=== PATIENT | male | born 1950 | race Caucasian/White ===

== ENCOUNTER 2024-08-09 20:50 | Emergency (ER) | payer MEDICARE, OTHER ==
[2024-08-09] MEDS ORDERED: Sodium Chloride 0.9% 10 ML Syringe FLUSH PRN (21:04)
[2024-08-09] MEDS: Aspirin 81 MG Tab.Chew PO ONE (21:14)
[2024-08-09] MEDS: Nitroglycerin 0.4 MG Tab.SL SL ONE ×2 (21:15→22:07)
[2024-08-09 21:18] LABS: BASOPHILS PERCENT AUTO 0.8 % (0.2-1.2); EOSINOPHILS ABSOLUTE AUTO 0.3 x10^3/uL (0.0-0.5); EOSINOPHILS PERCENT AUTO 6.2 % (0.0-4.0); HEMATOCRIT 39.5 % (40.0-52.0); HEMOGLOBIN 13.6 g/dL (14.0-18.0); LYMPHOCYTES ABSOLUTE AUTO 1.3 x10^3/uL (1.0-4.8); LYMPHOCYTES PERCENT AUTO 27.3 % (25.0-50.0); MEAN CORPUSCULAR HEMOGLOBIN 31.3 pg (26.0-32.0); MEAN CORPUSCULAR HGB CONC 34.4 g/dL (32.0-36.0); MONOCYTES ABSOLUTE AUTO 0.5 x10^3/uL (0.0-0.8); MONOCYTES PERCENT AUTO 10.5 % (2.0-11.0); NEUTROPHILS ABSOLUTE AUTO 2.7 x10^3/uL (1.8-7.7); NEUTROPHILS PERCENT AUTO 55.2 % (50.0-80.0); PLATELET COUNT,PLT 110 x10^3/uL (130-400); RED BLOOD CELL COUNT 4.34 x10^6/uL (4.5-6.0); WHITE BLOOD CELL COUNT,WBC 4.8 x10^3/uL (4.0-10.0)
[2024-08-09 21:49] LABS: A/G RATIO 1.3; ALBUMIN 3.9 g/dL (3.4-5.0); ANION GAP 8.9 mmol/L (5-15); BILIRUBIN TOTAL 0.4 mg/dL (0.2-1.0); CALCIUM 9.1 mg/dL (8.5-10.1); CREATININE 1.1 mg/dL (0.70-1.30); EST CRCL DRUG DOSING (CG) 66.58 mL/min; POTASSIUM,K 3.9 mmol/L (3.5-5.1); PROTEIN TOTAL,TP 6.9 g/dL (6.4-8.2); PROTHROMBIN TIME 10.4 SEC (9.6-12.0); PTT,PARTIAL THROMBOPLSTIN TIME 28.1 SEC (23.5-33.2); TSH ULTRASENSITIVE 2.213 uIU/mL (0.358-3.74)
[2024-08-09] MEDS: Heparin Sodium/0.45% NaCl 25,000 UNITS/250 ML BAG IV STA (21:58)
[2024-08-09] MEDS: Heparin Sodium 5,000 Units/ML Vial IVPUSH ONE (21:58)
[2024-08-09] MEDS: Nitroglycerin 2% Oint 1 GM UD Packet TOP ONE (22:36)
[2024-08-09 23:32] VITALS: BP 120/66; PULSE 57
== END 2024-08-09 23:00 | disposition short-term general hospital (02) ==
LOC: VM.ED 20:50
DX: I21.4 Non-ST elevation (NSTEMI) myocardial infarction (principal); I10 Essential (primary) hypertension; E78.00 Pure hypercholesterolemia, unspecified; I25.10 Atherosclerotic heart disease of native coronary artery without angina pectoris; E78.5 Hyperlipidemia, unspecified; Z79.82 Long term (current) use of aspirin; Z79.899 Other long term (current) drug therapy
CPT/HCPCS: 36415; 71045; 80053; 83735; 84443; 84484; 85025; 85610; 85730; 93005; 93010; 96365; 99284; 99285-25; A9270-GY; J1644